=== PATIENT | female | born 2000 | race Hispanic/Latino ===

== ENCOUNTER 2019-01-07 19:13 | Inpatient (IN) | payer OTHER ==
[~2019-01-07] VITALS: Ht 149.9 cm; Wt 95.3 kg
[2019-01-07] MEDS ORDERED: LACTATED RINGERS 1000ML 1,000 ML IV PRN (19:51)
[2019-01-07] MEDS ORDERED: OXYTOCIN-LR 20 UNITS/1000 ML 1,000 ML IV SCH ×2 (20:00→20:15)
[2019-01-07] MEDS ORDERED: PHARMACY COMMUNICATION MISC SCH (20:15)
[2019-01-07 20:27] LABS: APPEARANCE,URINE Clear (CLEAR); BILIRUBIN,URINE Negative (NEGATIVE); COLOR,URINE Yellow (YELLOW); GLUCOSE, URINE (UA) Negative (NEGATIVE); KETONES,URINE 15 mg/dL (NEGATIVE); LEUKOCYTE ESTERASE ,URINE Small (NEGATIVE); NITRATE,URINE Negative (NEGATIVE); OCCULT BLOOD,URINE Negative (NEGATIVE); PH,URINE 6.5 (5.0-8.0); PROTEIN,URINE Negative (NEGATIVE)
[2019-01-07 20:38] LABS: BACTERIA,URINE Few /HPF (None Seen); RBC,URINE 0-1 /HPF (0-1); SQUAMOUS EPITHELIAL CELL,UR Moderate /HPF (0-2)
[2019-01-07 20:39] LABS: MUCUS,URINE Rare LPF (None Seen)
[2019-01-07 22:01] LABS: HEMATOCRIT 31.3 % (36-48); MEAN CORPUSCULAR HEMOGLOBIN 26.6 pg (27.0-33.0); MEAN CORPUSCULAR HGB CONC 33.5 g/dL (32.0-36.0); MEAN CORPUSCULAR VOLUME 79.4 fL (80-100); PLATELET COUNT (AUTO) 271 K/uL (130-400); RED BLOOD CELL COUNT(AUTO) 3.95 MIL/uL (4.00-5.50); RED CELL DISTRIBUTION WIDTH 17.3 % (11.0-15.5); WHITE BLOOD COUNT (AUTO) 7.8 K/uL (4.8-10.8)
[2019-01-07] MEDS ORDERED: MEPERIDINE-PF 50 MG/ML SYG ONE (23:58)
[2019-01-08] VITALS (7 sets, daily range): BP systolic 108–133; BP diastolic 51–81
[2019-01-08] MEDS ORDERED: MEPERIDINE-PF 50 MG/ML SYG IVP ONE
[2019-01-08] MEDS ORDERED: PROMETHAZINE HCL 25 MG/ML 1ML AMPULE IM SCH
[2019-01-08] MEDS ORDERED: NALOXONE HCL 0.4 MG/1 ML ML IV PRN (01:00)
[2019-01-08] MEDS ORDERED: LACTATED RINGERS 500 ML 500 ML IV PRN (01:00)
[2019-01-08] MEDS ORDERED: EPHEDRINE SULFATE 50 MG/ML AMPULE IVP PRN (01:00)
[2019-01-08] MEDS ORDERED: ROPIVACAINE 0.2% 100ML VIAL 100 ML EP SCH (01:00)
[2019-01-08] MEDS ORDERED: LIDOCAINE HCL 1% 20 ML VIAL ONE (01:17)
[2019-01-08] MEDS ORDERED: WITCH HAZEL 1 PAD TP PRN (05:45)
[2019-01-08] MEDS ORDERED: LANOLIN 30GM OINTMENT TP PRN (05:45)
[2019-01-08] MEDS ORDERED: ACETAMINOPHEN 325 MG TAB PO PRN (05:45)
[2019-01-08] MEDS ORDERED: ACETAMINOPHEN-CODEINE 300/30MG TAB PO PRN (05:45)
[2019-01-08] MEDS ORDERED: BENZOCAINE/LANOLIN/ALOE VERA 60 ML AEROSOL TP PRN (05:45)
[2019-01-08] MEDS ORDERED: MEASLES/MUMPS/RUBELLA VACCINE, LIVE 0.5 ML/VIAL SQ PRN (05:45)
[2019-01-08] MEDS ORDERED: DIPH,PERTUSS(ACELL),TET VAC/PF 0.5 ML VIAL IM PRN (05:45)
[2019-01-08] MEDS ORDERED: PREN-94 PO (07:36)
[2019-01-08] MEDS ORDERED: FLU VACC QS2019-20 36MOS UP/PF 60 MCG/0.5 ML ML IM ONE (08:00)
--- NOTE | 2019-01-08 08:05 | NUR ---
FUNDUS FIRM, BLEEDING SCANT. BABY IS SUCCESSFULLY LATCHED TO LEFT BREAST. PATIENT C/O CRAMPING RATED 2/10. ADVISED PATIENT TO CALL WHEN NEEDING TO AMBULATE FOR THE FIRST TIME. PATIENT VOICED UNDERSTANDING. CALL LIGHT LEFT IN REACH.
[2019-01-08] MEDS: IBUPROFEN 600 MG TABLET PO PRN ×2 (09:19→16:40)
[2019-01-08] MEDS: DOCUSATE SODIUM 100 MG CAP PO SCH ×2 (09:19→20:27)
[2019-01-08] MEDS: FLU VACC QS2019-20 36MOS UP/PF 60 MCG/0.5 ML ML IM SCH (09:19)
--- NOTE | 2019-01-08 10:40 | NUR ---
ASSISTED PATIENT OOB TO RESTROOM. PATIENT ABLE TO VOID 400ML OF RED TINGED URINE. NO CLOTS EXPELLED. PERICARE GIVEN. NO PROBLEMS AMBULATING. EDUCATED PT ON EMERGENCY CALL CORDS IN RESTROOM. PT VOICED UNDERSTANDING.
[2019-01-09 03:26] VITALS: BP 122/66
[2019-01-09 05:50] LABS: HEMATOCRIT 27.8 % (36-48); MEAN CORPUSCULAR HEMOGLOBIN 26.5 pg (27.0-33.0); MEAN CORPUSCULAR HGB CONC 32.9 g/dL (32.0-36.0); MEAN CORPUSCULAR VOLUME 80.5 fL (80-100); NUCLEATED RED BLOOD CELLS 0.1 % (0.0-0.19); PLATELET COUNT (AUTO) 241 K/uL (130-400); RED BLOOD CELL COUNT(AUTO) 3.46 MIL/uL (4.00-5.50); RED CELL DISTRIBUTION WIDTH 17.6 % (11.0-15.5); WHITE BLOOD COUNT (AUTO) 10.2 K/uL (4.8-10.8)
[2019-01-09 07:14] LABS: HEPATITIS Bs ANTIGEN SCREEN P Negative (Negative)
--- NOTE | 2019-01-09 07:45 | NUR ---
PHILIP ROMERO CNM ROUNDED AND DISCHARGED PT TO HOME.
[2019-01-09 07:49] VITALS: BP 117/56
[2019-01-09] MEDS: DOCUSATE SODIUM 100 MG CAP PO SCH (08:42)
[2019-01-09] MEDS: IBUPROFEN 600 MG TABLET PO PRN (08:43)
[2019-01-09] MEDS: FLU VACC QS2019-20 36MOS UP/PF 60 MCG/0.5 ML ML IM SCH (09:00)
[2019-01-09 11:46] VITALS: BP 116/60
--- NOTE | 2019-01-09 13:25 | NUR ---
DISCHARGE INSTRUCTIONS GIVEN AND PATIENT VERBALIZED UNDERSTANDING INSTRUCTION. INSTRUCTED TO TAKE MOTRIN OVER THE COUNTER NEEDED FOR PAIN, INSTRUCTED ON DOSAGE AND FREQUENCY.
--- NOTE | 2019-01-09 14:10 | NUR ---
PATIENT WAS TAKEN VIA W/C TO [facility]ILY [facility] CARRYING BABY IN [place] AND WAS DISCHARGED TO HER SPOUSE IN STABLE CONDITION.
== END 2019-01-09 14:10 | disposition home or self-care (01) | DRG 807 ==
LOC: LDH 19:13 → WSH 01-08 05:54
PROVIDERS: ADMIT Obstetrics & Gynecology; ATTEND Obstetrics & Gynecology
PROC: 10E0XZZ Delivery of Products of Conception, External Approach (ICD-10-PCS; principal; 2019-01-08)
PROC: 0HQ9XZZ Repair Perineum Skin, External Approach (ICD-10-PCS; 2019-01-08)
PROC: 00HU33Z Insertion of Infusion Device into Spinal Canal, Percutaneous Approach (ICD-10-PCS; 2019-01-08)
PROC: 3E0R3BZ Introduction of Anesthetic Agent into Spinal Canal, Percutaneous Approach (ICD-10-PCS; 2019-01-08)
PROC: 3E0234Z Introduction of Serum, Toxoid and Vaccine into Muscle, Percutaneous Approach (ICD-10-PCS; 2019-01-08)
DX: O70.0 First degree perineal laceration during delivery (principal); Z37.0 Single live birth; Z3A.39 39 weeks gestation of pregnancy; Z23 Encounter for immunization
CPT/HCPCS: 36415; 76805; 81001; 85027; 86592; 86850; 86900; 86901; 87340; 90715; A4314; G0378; J2175; J2590; Q2035

== ENCOUNTER 2019-08-08 02:29 | Emergency (ER) | payer MEDICAID ==
[2019-08-08] MEDS ORDERED: CYCLOBENZAPRINE HCL 10 MG TABLET ONE (03:13)
[2019-08-08] MEDS ORDERED: ONDANSETRON ODT 4 MG TAB ONE (04:01)
[2019-08-08] MEDS ORDERED: DICYCLOMINE HCL 10 MG/ML 2ML AMP IM ONE (05:01)
== END 2019-08-08 06:00 | disposition home or self-care (01) ==
LOC: EDH 02:29
DX: O21.8 Other vomiting complicating pregnancy (principal); R19.7 Diarrhea, unspecified; Z3A.12 12 weeks gestation of pregnancy
CPT/HCPCS: 96372 ×2; 99284; J0500

== ENCOUNTER 2020-01-23 20:57 | Inpatient (IN) | payer MEDICAID ==
[~2020-01-23] VITALS: Ht 149.9 cm; Wt 91.6 kg
[~2020-01-23 20:57] MED LIST: PREN-94 PO
[2020-01-23] MEDS ORDERED: OXYTOCIN 10 USP UNITS/ML IM SCH (21:30)
[2020-01-23] MEDS ORDERED: OXYTOCIN 10 USP UNITS/ML ONE (21:31)
[2020-01-23] MEDS ORDERED: LANOLIN 30GM OINTMENT TP PRN (21:45)
[2020-01-23] MEDS ORDERED: IBUPROFEN 600 MG TABLET PO PRN (21:45)
[2020-01-23] MEDS ORDERED: ACETAMINOPHEN 325 MG TAB PO PRN (21:45)
[2020-01-23] MEDS ORDERED: DIPH,PERTUSS(ACELL),TET VAC/PF 0.5 ML VIAL IM PRN (21:45)
[2020-01-23] MEDS ORDERED: MEASLES/MUMPS/RUBELLA VACCINE, LIVE 0.5 ML/VIAL SQ PRN (21:45)
[2020-01-23] MEDS ORDERED: BENZOCAINE/LANOLIN/ALOE VERA 60 ML AEROSOL TP PRN (21:45)
[2020-01-23] MEDS ORDERED: WITCH HAZEL 1 PAD TP PRN (21:45)
[2020-01-23] MEDS ORDERED: ACETAMINOPHEN-CODEINE 300/30MG TAB PO PRN (21:45)
[2020-01-23] MEDS ORDERED: LACTATED RINGERS 1000ML 1,000 ML IV PRN (22:00)
[2020-01-23] MEDS ORDERED: PREN-196 PO (23:19)
[2020-01-23 23:50] VITALS: BP 125/63
[2020-01-24] VITALS (7 sets, daily range): BP systolic 107–133; BP diastolic 52–77
[2020-01-24 01:35] LABS: HEMATOCRIT 34.7 % (36-48); MEAN CORPUSCULAR HEMOGLOBIN 25.2 pg (27.0-33.0); MEAN CORPUSCULAR HGB CONC 31.1 g/dL (32.0-36.0); MEAN CORPUSCULAR VOLUME 81.1 fL (80-100); RED BLOOD CELL COUNT(AUTO) 4.28 MIL/uL (4.00-5.50); WHITE BLOOD COUNT (AUTO) 7.2 K/uL (4.8-10.8)
[2020-01-24] MEDS: DOCUSATE SODIUM 100 MG CAP PO SCH ×2 (08:19→21:09)
[2020-01-24] MEDS: LACTATED RINGERS 1000ML 1,000 ML IV SCH ×2 (21:15→21:19)
[2020-01-25 03:11] VITALS: BP 102/61
[2020-01-25 07:35] VITALS: BP 108/62
[2020-01-25] MEDS: DOCUSATE SODIUM 100 MG CAP PO SCH (08:29)
[2020-01-25 11:30] VITALS: BP 131/76
[2020-01-27 05:15] LABS: HEPATITIS Bs ANTIGEN SCREEN P Negative (Negative)
== END 2020-01-25 11:45 | disposition home or self-care (01) | DRG 560 ==
LOC: EDH 20:57 → LDH 20:58 → UNDOADMOB 20:58 → LDH 20:59 → UNDOADMOB 20:59 → INTOOBSV 22:00 → OBSVTOIN 22:00 → LDH 23:41 → WSH 23:41
PROVIDERS: ADMIT Obstetrics & Gynecology; ATTEND Obstetrics & Gynecology
PROC: 10E0XZZ Delivery of Products of Conception, External Approach (ICD-10-PCS; principal; 2020-01-23)
PROC: 3E0234Z Introduction of Serum, Toxoid and Vaccine into Muscle, Percutaneous Approach (ICD-10-PCS; 2020-01-23)
PROC: 3E0134Z Introduction of Serum, Toxoid and Vaccine into Subcutaneous Tissue, Percutaneous Approach (ICD-10-PCS; 2020-01-23)
DX: O62.3 Precipitate labor (principal); Z3A.36 36 weeks gestation of pregnancy; Z37.0 Single live birth; Z23 Encounter for immunization; O71.82 Other specified trauma to perineum and vulva
CPT/HCPCS: 36415; 85027; 86592; 86850; 86900; 86901; 87340; G0378; J2590